=== PATIENT | male | born 2000 | race Caucasian/White ===

== ENCOUNTER 2020-07-22 23:04 | Emergency (ER) | payer SELFPAY ==
[~2020-07-22] VITALS: Ht 180.3 cm; Wt 65.9 kg
[2020-07-22 23:05] VITALS: TEMP 97.4
[2020-07-22 23:30] LABS: BASO % 0.3 % (0.0-2.0); EOS % 0.1 % (0-4.0); GRAN # 9.6 (1.4-6.5); GRAN % 80.8 % (42.2-75.2); HEMATOCRIT 49.3 % (36.0-47.0); HEMOGLOBIN 16.8 g/dl (12.5-16.1); LYMPH # 1.4 (1.2-3.4); MEAN CELL VOLUME 90 fl (80.0-95.0); MEAN CORPUSCULAR HEMOGLOBIN 31 pg (26.0-32.0); MEAN CORPUSCULAR HGB CONC 34 g/dl (33.0-37.0); MEAN PLATELET VOLUME 8.5 fl (7.4-10.4); MONO # 0.8 (0.1-0.6); MONO % 6.3 % (1.7-9.3); PLATELET COUNT 341 K/mm3 (130-400); RED BLOOD COUNT 5.47 M/mm3 (4.20-5.60); REDCELL DISTRIBUTION WIDTH-CV 12.3 % (11.5-14.5)
[2020-07-22 23:35] LABS: ALANINE AMINOTRANSFERASE 14 U/L (4-49); ALBUMIN 4.6 gm/dL (3.5-5.0); ALKALINE PHOSPHATASE 63 U/L (50-136); ANION GAP 11 mmol/L (7-16); AST,SGOT 22 U/L (15-37); BILIRUBIN,TOTAL 0.6 mg/dL (0.0-1.0); BLOOD UREA NITROGEN 8 mg/dL (9-20); CALCIUM 9.5 mg/dL (8.4-10.2); CARBON DIOXIDE 28 mmol/L (22-30); CHLORIDE 100 mmol/L (98-107); CREATININE, serum 0.91 (0.66-1.25); GLUCOSE 116 mg/dL (74-106); LIPASE 108 U/L (23-300); SODIUM 138 mmol/L (137-145); TOTAL PROTEIN 7.7 gm/dL (6.4-8.2)
[2020-07-22 23:46] LABS: POTASSIUM 3.1 mmol/L (3.4-5.0)
[2020-07-22 23:57] LABS: TROPONIN-I < 0.012 ng/mL (0.000-0.035)
[2020-07-23] MEDS ORDERED: CAPSAICIN60 GM TP (00:05)
[2020-07-23 00:17] VITALS: BP 120/67; PULSE 85
== END 2020-07-23 00:17 | disposition home or self-care (01) ==
LOC: COL.ER 23:04
PROVIDERS: Emergency Medicine
DX: R07.89 Other chest pain (principal); F41.9 Anxiety disorder, unspecified
CPT/HCPCS: J1200; J1630